=== PATIENT | female | born 1970 | race Caucasian/White ===

== ENCOUNTER 2019-11-21 07:48 | Day surgery (SDC) | payer OTHER ==
[~2019-11-21 07:48] MED LIST: DIPRIVAN 200 MG/20 ML IV ONE; Ketamine HCl 50 MG/ML ONE
[2019-11-21] MEDS ORDERED: Sodium Chloride 0.9(Preservative Free) 10 ML IJ ONE (07:49)
[2019-11-21] MEDS ORDERED: Depo-Medrol 40 MG/ML IM ONE (07:49)
--- NOTE | 2019-11-21 10:57 | XRAY ---
Indication: Right L4-S1 transforaminal CHERYL. Intraoperative fluoroscopy was provided for 33 seconds. 4 digital spot images submitted for interpretation demonstrates posterior needle tips projecting over the expected right L4 and L5 nerve roots. Small amount of contrast injected for needle tip placement. Correlate with intraoperative findings/report.
--- NOTE | 2019-11-21 10:59 | XRAY ---
33 seconds fluoroscopy time in surgery for right L4-S1 transforaminal CHERYL.
[2019-11-21] MEDS ORDERED: Lactated Ringers 1,000 ML IV ONE (15:56)
== END 2019-11-21 10:15 | disposition home or self-care (01) ==
LOC: SDC-PAIN 07:48
PROVIDERS: ATTEND Psychiatry & Neurology Pain Medicine
DX: M54.16 Radiculopathy, lumbar region (principal); E03.9 Hypothyroidism, unspecified; F41.8 Other specified anxiety disorders; Z79.899 Other long term (current) drug therapy
CPT/HCPCS: 64483; 64484; 72100; 77003; 84703; J1030; J2704; Q9966

== ENCOUNTER 2020-08-27 15:21 | Day surgery (SDC) | payer OTHER ==
[2020-08-27] MEDS ORDERED: BUPIVACAINE 0.5% VIAL IJ ONE (15:22)
[2020-08-27] MEDS ORDERED: Depo-Medrol 40 MG/ML IM ONE (15:22)
[2020-08-27] MEDS ORDERED: Lactated Ringers 1,000 ML IV ONE (15:59)
[2020-08-27] MEDS ORDERED: DIPRIVAN 200 MG/20 ML IV ONE ×2 (17:00→17:17)
--- NOTE | 2020-08-27 20:33 | XRAY ---
Indication: Left knee injection. Intraoperative fluoroscopy provided for 4 seconds. Single digital spot image submitted for interpretation demonstrates needle tip projecting over the left femur intercondylar notch. Small amount of contrast injected for needle tip placement. Correlate with intraoperative findings/report.
--- NOTE | 2020-08-27 20:33 | XRAY ---
Indication: Right knee injection. Intraoperative fluoroscopy provided for 18 seconds. Single digital spot image submitted for interpretation demonstrates needle tip projecting over the right femur intercondylar notch. Small amount of contrast injected for needle tip placement. Correlate with intraoperative findings/report.
--- NOTE | 2020-08-28 08:33 | XRAY ---
18 seconds fluoroscopy time in surgery for intra-articular injection of the right knee.
--- NOTE | 2020-08-28 08:34 | XRAY ---
4 seconds fluoroscopy time in surgery for intra-articular injection of the left knee.
== END 2020-08-27 17:45 | disposition home or self-care (01) ==
LOC: SDC-PAIN 15:21
PROVIDERS: ATTEND Psychiatry & Neurology Pain Medicine
DX: M17.0 Bilateral primary osteoarthritis of knee (principal); Z79.899 Other long term (current) drug therapy
CPT/HCPCS: 20610; 73560; 77002; 84703; J1030; J2704; Q9966

== ENCOUNTER 2020-10-08 12:20 | Day surgery (SDC) | payer OTHER ==
[2020-10-08] MEDS ORDERED: Sodium Chloride 0.9(Preservative Free) 10 ML IJ ONE (12:21)
[2020-10-08] MEDS ORDERED: BUPIVACAINE 0.5% VIAL IJ ONE (12:21)
[2020-10-08] MEDS ORDERED: Depo-Medrol 40 MG/ML IM ONE (12:21)
[2020-10-08] MEDS ORDERED: DIPRIVAN 200 MG/20 ML IV ONE (15:22)
--- NOTE | 2020-10-08 16:38 | XRAY ---
Indication: Right L4-S1 transforaminal CHERYL. Intraoperative fluoroscopy provided for 19 seconds. 2 digital spot image submitted for interpretation demonstrates posterior needle tips projecting over the expected right L4 and L5 nerve roots. Small amount of contrast injected for needle tip placement. Correlate with intraoperative findings/report.
--- NOTE | 2020-10-08 16:38 | XRAY ---
Indication: Left hip injection. Intraoperative fluoroscopy provided for 10 seconds. Single digital spot image submitted for interpretation demonstrates needle tip projecting just lateral to the left greater trochanter. Small amount of contrast injected for needle tip placement. Correlate with intraoperative findings/report.
[2020-10-08] MEDS ORDERED: Lactated Ringers 1,000 ML IV ONE (16:39)
--- NOTE | 2020-10-08 16:42 | XRAY ---
19 seconds fluoroscopy time in surgery for right L4-S1 transforaminal CHERYL.
--- NOTE | 2020-10-08 16:52 | XRAY ---
10 seconds fluoroscopy time in surgery for injection of the greater trochanter of the right hip.
== END 2020-10-08 15:55 | disposition home or self-care (01) ==
LOC: SDC-PAIN 12:20
PROVIDERS: ATTEND Psychiatry & Neurology Pain Medicine
DX: M54.16 Radiculopathy, lumbar region (principal); M70.61 Trochanteric bursitis, right hip; Z79.899 Other long term (current) drug therapy
CPT/HCPCS: 20610; 64483; 64484; 72100; 73501; 77002; 77003; 84703; J1030; J2704; Q9966